=== PATIENT | female | born 1980 | race African-American/Black ===

== ENCOUNTER 2017-03-16 10:17 | Emergency (ER) | payer OTHER, BC ==
[~2017-03-16] VITALS: Ht 160 cm; Wt 72.7 kg
[2017-03-16] MEDS ORDERED: FLEXERIL5 MG PO (11:54)
[2017-03-16 12:07] VITALS: BP 105/78
== END 2017-03-16 12:07 | disposition home or self-care (01) ==
LOC: EME 10:17
DX: S16.1XXA Strain of muscle, fascia and tendon at neck level, initial encounter (principal); V49.40XA Driver injured in collision with unspecified motor vehicles in traffic accident, initial encounter; Y92.410 Unspecified street and highway as the place of occurrence of the external cause
CPT/HCPCS: 72040; 99281; 99284